=== PATIENT | female | born 1990 | race African-American/Black ===

== ENCOUNTER 2022-04-19 20:55 | Inpatient (IN) ==
[2022-04-19] MEDS ORDERED: BUTORPHANOL 1 MG/ML VIAL IV PRN (21:07)
[2022-04-19] MEDS ORDERED: LACTATED RINGERS 500 ML IV PRN (21:07)
[2022-04-19] MEDS ORDERED: BUTORPHANOL 2 MG/ML VIAL IV PRN (21:07)
[2022-04-19] MEDS ORDERED: MEPERIDINE 25 MG/1 ML VIAL IV PRN (21:07)
[2022-04-19] MEDS ORDERED: TRANEXAMIC ACID 1,000 MG in SODIUM CHLORIDE 0.9% 100 ML IV PRN (21:07)
[2022-04-19] MEDS ORDERED: METHYLERGONOVINE 0.2 MG/1 ML AMP IM PRN (21:07)
[2022-04-19] MEDS ORDERED: ONDANSETRON 4 MG/2 ML VIAL IV PRN (21:07)
[2022-04-19] MEDS ORDERED: OXYTOCIN/LR 20 UNIT/1,000 ML BAG IV ONE (21:07)
[2022-04-19] MEDS ORDERED: ACETAMINOPHEN 500 MG TABLET PO PRN (21:07)
[2022-04-19] MEDS ORDERED: MEPERIDINE 50 MG/1 ML VIAL IV PRN (21:07)
[2022-04-19] MEDS ORDERED: miSOPROStoL 200 MCG TABLET RECTAL PRN (21:07)
[2022-04-19] MEDS ORDERED: CARBOPROST TROMETHAMINE 250 MCG/ML AMP IM PRN (21:07)
[2022-04-19 21:32] LABS: Basophils % 0.2 % (0.0-0.8); Eosinophils # 0.1 10*3/uL (0.0-0.87); Eosinophils % 0.8 % (0.00-10.9); Hematocrit 39.8 VOL% (35.7-47.0); Hemoglobin 12.7 GM/DL (12.0-16.0); Immature Granulocytes % 1.1 %; Immature Granulocytes Absolute 0.14 #; Lymphocytes # 2.3 10*3/uL (1.4-4.0); Mean Corpuscular HGB Conc 31.9 GM/DL (32-36); Mean Corpuscular Volume 78.3 FL (87-102); Mean Platelet Volume 9.7 FL (9.6-12.0); Monocytes % 8.1 % (1.7-12.7); Neutrophils % 71.8 % (38.7-73.9); Platelet Count 249 T/CUMM (130-400); Red Blood Count 5.08 MC/CUMM (3.8-5.5); Red Cell Distribution Width 16.9 % (9.3-17.3); White Blood Count 12.7 T/CUMM (4-12)
[2022-04-19 21:51] LABS: Alanine Aminotransferase 22 U/L (13-56); Albumin 2.8 G/DL (3.4-5.0); Alkaline Phosphatase 226 U/L (45-117); Aspartate Amino Transferase 19 U/L (0-37); Bilirubin,Total < 0.39 MG/DL (0.20-1.00); Blood Urea Nitrogen 6 MG/DL (7-18); Calcium 8.8 MG/DL (8.5-10.1); Carbon Dioxide 19 MMOL/L (21-32); Chloride 110 MMOL/L (98-107); Glucose 110 MG/DL (74-106); Osmolality,Calculated 273.7 MOS/KG (273-304); Potassium 3.9 MMOL/L (3.5-5.1); Sodium 138 MMOL/L (136-145); Total Protein 7.3 G/DL (6.4-8.2)
[2022-04-20] MEDS: LACTATED RINGERS 1,000 ML IV SCH ×3 (04:20→11:24)
[2022-04-20] MEDS ORDERED: OXYTOCIN/LR 20 UNIT/1,000 ML BAG IV SCH (09:00)
[2022-04-20] MEDS ORDERED: NALOXONE 0.4 MG/ML VIAL IV PRN (09:19)
[2022-04-20] MEDS ORDERED: ePHEDrine 50 MG/ML VIAL IV PRN (09:19)
[2022-04-20] MEDS ORDERED: hydrOXYzine HCL 25 MG/1 ML VIAL IM PRN (09:19)
[2022-04-20] MEDS ORDERED: FAMOTIDINE 20 MG/2 ML VIAL IV ONE (09:19)
[2022-04-20] MEDS ORDERED: PROMETHAZINE 25 MG/1 ML VIAL IM ONE (09:19)
[2022-04-20] MEDS ORDERED: diphenhydrAMINE 50 MG/1 ML VIAL IV PRN ×2 (09:19)
[2022-04-20] MEDS ORDERED: CITRIC ACID/SODIUM CITRATE 30 ML UDCUP PO ONE (09:19)
[2022-04-20] MEDS ORDERED: fentaNYL 2 MCG/ROPIV 0.2% EPID 100 ML EPIDURAL SCH (09:30)
[2022-04-20 11:21] LABS: Bilirubin,Urine Negative (Negative); Blood, Urine Small mg/dL (Negative); Glucose,Urine (UA) Negative (Negative); Ketones,Urine Negative (Negative); Mucus,Urine Occasional /LPF (Occasional); Nitrite,Urine Negative (Negative); Protein,Urine Negative (Negative); RBC,Urine 2 /HPF (0-4); Squamous Epithelial Cell,Urine Occasional /HPF (0-10); Urine Appearance CLEAR (Clear); Urine Color Yellow (Yellow); Urine Urobilinogen < 2.0 eU/dL (<2.0)
[2022-04-20] MEDS ORDERED: OXYTOCIN/LR 20 UNIT/1,000 ML BAG IV ONE ×2 (14:38→14:56)
[2022-04-20] MEDS ORDERED: ceFAZolin 2,000 MG/50 ML DUPLEX IV ONE (14:39)
[2022-04-20] MEDS ORDERED: LIDOCAINE MPF 2% /EPI 20 ML VIAL ONE (14:48)
[2022-04-20] MEDS ORDERED: miSOPROStoL 200 MCG TABLET ONE (14:55)
[2022-04-20] MEDS ORDERED: CARBOPROST TROMETHAMINE 250 MCG/ML AMP IM ONE (14:56)
[2022-04-20] MEDS ORDERED: METHYLERGONOVINE 0.2 MG/1 ML AMP ONE (14:56)
[2022-04-20] MEDS ORDERED: ceFAZolin 3,000 MG in SYRINGE 1 EACH IV ONE (15:02)
[2022-04-20] MEDS ORDERED: buprenorphine HCL 0.3 MG/ML VIAL ONE (15:07)
[2022-04-20] MEDS ORDERED: KETOROLAC 30 MG/1 ML VIAL ONE (15:08)
[2022-04-20] MEDS ORDERED: DEXAMETHASONE 4 MG/1 ML VIAL ONE (15:08)
[2022-04-20] MEDS ORDERED: ACETAMINOPHEN INJ 1,000 MG/100 ML VIAL IV ONE (15:08)
[2022-04-20] MEDS ORDERED: ONDANSETRON 4 MG/2 ML VIAL ONE (15:08)
[2022-04-20 15:51] LABS: Cord Arterial Blood HCO3 22.1 MMOL/L
[2022-04-20 15:55] LABS: Cord Venous Blood PO2 36.5
[2022-04-20] MEDS: KETOROLAC 30 MG/1 ML VIAL IV SCH ×2 (17:35→22:45)
[2022-04-20] MEDS: ACETAMINOPHEN 500 MG TABLET PO SCH (22:44)
[2022-04-21] MEDS: LACTATED RINGERS 1,000 ML IV SCH
[2022-04-21 00:38] LABS: Basophils % 0.2 % (0.0-0.8); Hemoglobin 11.5 GM/DL (12.0-16.0); Immature Granulocytes % 0.8 %; Immature Granulocytes Absolute 0.15 #; Lymphocytes % 5.3 % (21.3-54.2); Mean Corpuscular HGB Conc 31.9 GM/DL (32-36); Mean Corpuscular Volume 78.6 FL (87-102); Mean Platelet Volume 9.8 FL (9.6-12.0); Monocytes # 0.6 10*3/uL (0.11-0.8); Monocytes % 3.3 % (1.7-12.7); Neutrophils % 90.4 % (38.7-73.9); Platelet Count 224 T/CUMM (130-400); Red Blood Count 4.58 MC/CUMM (3.8-5.5); Red Cell Distribution Width 16.5 % (9.3-17.3); White Blood Count 19.5 T/CUMM (4-12)
[2022-04-21] MEDS: ACETAMINOPHEN 500 MG TABLET PO SCH ×2 (03:49→10:15)
[2022-04-21] MEDS: KETOROLAC 30 MG/1 ML VIAL IV SCH ×2 (03:51→13:50)
[2022-04-21 08:55] LABS: Basophils % 0.1 % (0.0-0.8); Eosinophils % 0.1 % (0.00-10.9); Hematocrit 33.6 VOL% (35.7-47.0); Hemoglobin 10.7 GM/DL (12.0-16.0); Immature Granulocytes % 2.1 %; Immature Granulocytes Absolute 0.42 #; Lymphocytes # 2.3 10*3/uL (1.4-4.0); Lymphocytes % 11.2 % (21.3-54.2); Mean Corpuscular HGB Conc 31.8 GM/DL (32-36); Mean Corpuscular Volume 79.1 FL (87-102); Mean Platelet Volume 10.2 FL (9.6-12.0); Monocytes # 1.3 10*3/uL (0.11-0.8); Monocytes % 6.5 % (1.7-12.7); Platelet Count 235 T/CUMM (130-400); Red Blood Count 4.25 MC/CUMM (3.8-5.5); Red Cell Distribution Width 16.5 % (9.3-17.3); White Blood Count 20.2 T/CUMM (4-12)
[2022-04-21 09:14] LABS: Band Neutrophils 2 % (0-10); Hypochromia Slight; Lymphocytes 17 % (20-55); Microcytosis Slight; Platelet Estimate Adequate; Total Cells Counted 100
[2022-04-22] MEDS: IBUPROFEN 800 MG TABLET PO PRN ×2 (00:31→09:39)
[2022-04-22] MEDS ORDERED: DOCUSATE SODIUM 100 MG CAPSULE PO PRN (09:31)
[2022-04-22 11:57] VITALS: BP 131/83
[2022-04-22] MEDS ORDERED: MAGNESIUM HYDROXIDE SUSP 30 ML UDCUP PO PRN (12:13)
== END 2022-04-22 14:30 | disposition home or self-care (01) | DRG 540 ==
LOC: N.LDOUT 20:55 → N.LD 20:57 → N.OB 04-20 19:50
PROVIDERS: ADMIT Obstetrics & Gynecology; ATTEND Obstetrics & Gynecology
PROC: LDCSECT (ICD-10-PCS; 2022-04-20 15:00)